=== PATIENT | male | born 2000 | race Hispanic/Latino ===

== ENCOUNTER 2021-05-05 20:37 | Emergency (ER) | payer OTHER ==
[~2021-05-05] VITALS: Ht 177.8 cm; Wt 127.0 kg
[2021-05-05] MEDS ORDERED: BACITRACIN ZINC 0.9GM TP ONE ×2 (21:21→21:30)
[2021-05-05] MEDS ORDERED: TETANUS/DIPHTHERIA TOX ADULT 0.5 ML SYR IM ONE (22:00)
[2021-05-05] MEDS ORDERED: TETANUS/DIPHTHERIA TOX ADULT 0.5 ML SYR ONE (22:05)
[2021-05-05] MEDS ORDERED: AUGMENTIN 875-1 EACH PO (22:07)
[2021-05-05] MEDS ORDERED: HYDROCODONE/APAP 10MG-325MG TAB PO ONE (23:45)
[2021-05-06 00:23] VITALS: BP 135/80
[2021-05-06] MEDS ORDERED: ULTRAM50 MG PO (00:24)
[2021-05-06] MEDS ORDERED: AUGMENTIN 875-1 EACH PO (00:24)
== END 2021-05-06 00:45 | disposition home or self-care (01) ==
LOC: ER 23:56
DX: S00.83XA Contusion of other part of head, initial encounter (principal); S50.812A Abrasion of left forearm, initial encounter; S50.312A Abrasion of left elbow, initial encounter; V28.0XXA Motorcycle driver injured in noncollision transport accident in nontraffic accident, initial encounter; Y92.488 Other paved roadways as the place of occurrence of the external cause
CPT/HCPCS: 70450; 72100; 72125; 90471; 90714; 99284

== ENCOUNTER 2023-02-06 23:24 | Emergency (ER) | payer SELFPAY ==
[~2023-02-06] VITALS: Ht 177.8 cm; Wt 127.0 kg
[~2023-02-06 23:24] MED LIST: AUGMENTIN 875-1 EACH PO; ULTRAM50 MG PO
== END 2023-02-07 00:11 | disposition home or self-care (01) ==
LOC: ER 23:37
DX: R19.7 Diarrhea, unspecified (principal); R11.2 Nausea with vomiting, unspecified
CPT/HCPCS: 99282